=== PATIENT | male | born 1945 | race Caucasian/White ===

== ENCOUNTER → 2018-06-22 | Outpatient (CLI) | payer MEDICARE, OTHER ==
[~2018-06-22] MED LIST: IOPAMIDOL 76% 150 ML INFUS BTL 150 ML ONE; NS(*) 0.9% 50 ML BAG 50 ML ONE
--- NOTE | 2018-06-22 17:27 | RADIOLOGY IMAGING REPORT ---
[place] [facility] [place] Nadir Umanzor : 1945 MR: [id number] V: [id number] EXAM DATE: ORDERING PHYSICIAN: KAJAL BIRMINGHAM TECHNOLOGIST: Location: [facility] Patient: Nadir Umanzor : 1945 Visit/Account:[id number] Date of Sevice: 06/22/2018 CT IVP W & W/O CONTRAST HISTORY: Hematuria TECHNIQUE: CT abdomen and pelvis without and with intravenous contrast per CT IVP split bolus protoc ol. One of the following dose optimization techniques was utilized in the performance of this exam: Autom ated exposure control; adjustment of the mA and/or kV according to the patient's size; or use of an i terative reconstruction technique. Specific details can be referenced in the facility's radiology C T exam operational policy. CONTRAST: 125 mL Isovue-370. COMPARISON: None. FINDINGS: Visualized lung bases: Negative. Hepatobiliary: Few subcentimeter hypodensities within the liver which are too small to characterize however statistically represents simple cysts. Otherwise negative. Spleen: Negative. Adrenals: Negative. Pancreas: Negative. Kidneys/: Kidneys are normal in size and contour. No nephrolithiasis, renal mass, or hydronephrosi s. No ureteral calculi or visualized ureteral filling defects. No bladder mass, calculus, or focal wall thickening. Mild diffuse bladder wall thickening, likely rel ated to chronic bladder outlet obstruction. Moderate prostate hypertrophy with moderate nodular mass effect upon the bladder base. GI: Moderate volume stool throughout the colon. Moderate nonspecific gastric distention. No evidence for small bowel obstruction. Vessels/spaces/nodes: Mild atherosclerosis. No lymphadenopathy. Bones/soft tissues: Negative. IMPRESSION: 1. Moderate prostate hypertrophy with nodular mass effect upon the bladder base. Otherwise, no findin gs to explain the patient's hematuria. No urolithiasis or urothelial mass. 2. Moderate volume stool throughout the colon. Recommend correlation for constipation. 3. Moderate nonspecific gastric distention. Report Dictated By: Kirk Bruno MD at 06/22/2018 5:18 PM Report E-Signed By: Kirk Bruno MD at 06/22/2018 5:23 PM WSN:[id number]
== END ==
LOC: CT 15:06
DX: N40.0 Benign prostatic hyperplasia without lower urinary tract symptoms (principal); K59.00 Constipation, unspecified
CPT/HCPCS: 74178; J7050; Q9967

== ENCOUNTER → 2018-07-03 | Outpatient (CLI) | payer MEDICARE, OTHER | LOC: LAB 14:31 | DX: R31.1 Benign essential microscopic hematuria (principal); R31.21 Asymptomatic microscopic hematuria ==